=== PATIENT | male | born 1995 | race Asian ===

== ENCOUNTER 2021-02-13 12:15 | Emergency (ER) | payer OTHER ==
[2021-02-13 12:34] VITALS: BP 114/57; PULSE 82; TEMP 98.8; BMI 26.6
[2021-02-13] MEDS ORDERED: IBUPROFEN 600 MG TABLET (FP) PO ONE ×3 (13:25→14:35)
== END 2021-02-13 15:00 | disposition home or self-care (01) ==
LOC: JER 12:15
DX: R06.02 Shortness of breath (principal); J02.9 Acute pharyngitis, unspecified; Z11.52 Encounter for screening for COVID-19
CPT/HCPCS: 71046-TC-FY; 87880; 99284-25; C9803; U0003; U0005

== ENCOUNTER 2022-10-16 11:03 | Emergency (ER) | payer OTHER ==
[2022-10-16] MEDS ORDERED: ACETAMINOPHEN 325 MG TABLET (FP) PO ONE (11:29)
[2022-10-16] MEDS ORDERED: ACETAMINOPHEN 325 MG TABLET (FP) ONE (11:32)
[2022-10-16 12:10] VITALS: BP 188/92; PULSE 83; RESP 18; TEMP 99.2; BMI 30.7
[2022-10-16 14:20] LABS: THROAT:GRP A STREP NOT DETECTED (NOTDETECTED)
== END 2022-10-16 12:27 | disposition home or self-care (01) ==
LOC: FER 11:03
DX: R05.9 Cough, unspecified (principal); R09.81 Nasal congestion; R07.0 Pain in throat; J06.9 Acute upper respiratory infection, unspecified; B97.89 Other viral agents as the cause of diseases classified elsewhere; Z20.822 Contact with and (suspected) exposure to COVID-19
CPT/HCPCS: 0241U-QW; 71046-TC-FY; 87651; 99284-25

== ENCOUNTER 2022-11-04 11:38 | Emergency (ER) | payer OTHER ==
[2022-11-04 11:56] VITALS: BP 132/96; PULSE 89; RESP 16; TEMP 98.7; BMI 30.7
== END 2022-11-04 12:30 | disposition home or self-care (01) ==
LOC: FER 11:38
DX: R10.31 Right lower quadrant pain (principal); R10.13 Epigastric pain
CPT/HCPCS: 99282-25

== ENCOUNTER 2023-10-17 19:17 | Emergency (ER) | payer OTHER ==
[2023-10-17 19:23] VITALS: RESP 18; TEMP 98.2; BMI 31.6
[2023-10-17] MEDS ORDERED: FAMOTIDINE 10 MG/ML VIAL IVPB ONE (20:22)
[2023-10-17] MEDS ORDERED: ONDANSETRON 4 MG/2 ML VIAL ONE (20:22)
[2023-10-17] MEDS ORDERED: ACETAMINOPHEN INJECTION 100 ML IVPB ONE (20:22)
[2023-10-17] MEDS ORDERED: MAG HYDROX/AL HYDROX/SIMETH 30 ML UNIT-DOSE CUP ONE (20:22)
[2023-10-17] MEDS: MAG HYDROX/AL HYDROX/SIMETH 30 ML UNIT-DOSE CUP PO ONE (20:49)
[2023-10-17] MEDS: SODIUM CHLORIDE 0.9% 500 ML INFUS.BAG IV ONE (20:49)
[2023-10-17] MEDS: ACETAMINOPHEN 1000 MG/100 ML BAG IVPB ONE (20:50)
[2023-10-17] MEDS: FAMOTIDINE 20 MG/50 ML IVPB 20 MG/50 ML MG IVPB ONE (20:50)
[2023-10-17] MEDS: ONDANSETRON 4 MG/2 ML VIAL IVPUSH ONE (20:51)
[2023-10-17 21:03] LABS: BASO % 0.5 % (0-2.0); EOS % 2.8 % (0-4.5); HEMATOCRIT 39.9 % (35.4-49); HEMOGLOBIN 13.9 GM/dL (11.7-16.9); LYMPH % 24.9 % (8-40); MCH 29.6 pg (25.7-33.7); MCHC 34.9 g/dl (32.0-35.9); MEAN CELL VOLUME 84.7 fl (80-96); MEAN PLT VOLUME 6.4 fl (7.5-11.1); MONO % 6.8 % (3.8-10.2); PLATELET COUNT 297 10^3/uL (134-434); RBC 4.71 M/mm3 (4.00-5.60); RDW 12.9 % (11.9-15.9); WHITE BLOOD COUNT 7.7 K/mm3 (4.0-10.0)
[2023-10-17 21:34] LABS: POTASSIUM 3.7 mmol/L (3.5-5.1)
[2023-10-17 21:37] LABS: ALBUMIN 4.4 g/dl (3.4-5.0); BLOOD UREA NITROGEN 13.4 mg/dL (7-18); CALCIUM 9.1 mg/dL (8.5-10.1)
[2023-10-17 21:39] LABS: CREATININE 0.8 mg/dL (0.55-1.3)
[2023-10-17 21:42] LABS: BILIRUBIN,TOTAL 0.3 mg/dL (0.2-1); TOT PROT 7.6 g/dl (6.4-8.2)
[2023-10-17 22:18] VITALS: BP 141/84; PULSE 90
[2023-10-17 22:26] LABS: URINE APPEARANCE CLEAR; URINE BILIRUBIN NEGATIVE (NEGATIVE); URINE COLOR YELLOW; URINE GLUCOSE (UA) NEGATIVE (NEGATIVE); URINE KETONE NEGATIVE (NEGATIVE); URINE LEUK ESTERASE NEGATIVE (NEGATIVE); URINE NITRITE NEGATIVE (NEGATIVE); URINE PROTEIN NEGATIVE (NEGATIVE); URINE UROBILINOGEN 0.2 mg/dL (0.2-1.0)
== END 2023-10-17 22:23 | disposition home or self-care (01) ==
LOC: JER 19:17
PROC: 3E033GC Introduction of Other Therapeutic Substance into Peripheral Vein, Percutaneous Approach (ICD-10-PCS; principal; 2023-10-17)
PROC: 3E030NZ Introduction of Analgesics, Hypnotics, Sedatives into Peripheral Vein, Open Approach (ICD-10-PCS; 2023-10-17)
DX: R10.31 Right lower quadrant pain (principal)
CPT/HCPCS: 36415; 80053; 81003; 83690; 85025; 87086; 99284-25; J0131